=== PATIENT | female | born 1990 | race Two or more races ===

== ENCOUNTER 2020-04-20 17:22 | Emergency (ER) | payer OTHER ==
[~2020-04-20] VITALS: Ht 165.1 cm; Wt 68.9 kg
== END 2020-04-20 21:25 | disposition home or self-care (01) ==
LOC: ER 17:22
DX: N75.1 Abscess of Bartholin's gland (principal)

== ENCOUNTER 2023-03-24 12:43 | Emergency (ER) | payer OTHER ==
[~2023-03-24] VITALS: Ht 165.1 cm; Wt 81.6 kg
[2023-03-24] MEDS ORDERED: BACTRIM DS TAB1 EACH PO (14:46)
== END 2023-03-24 15:11 | disposition home or self-care (01) ==
LOC: ER 12:43
DX: N76.4 Abscess of vulva (principal)

== ENCOUNTER 2025-04-18 10:10 | Inpatient (IN) | payer OTHER ==
[~2025-04-18] VITALS: Ht 165.1 cm; Wt 77.1 kg
[~2025-04-18 10:10] MED LIST: BACTRIM DS TAB1 EACH PO
[2025-04-18] MEDS ORDERED: KETOROLAC TROMETHAMINE 30 MG VIAL ONE (10:41)
[2025-04-18] MEDS ORDERED: CEFTRIAXONE SODIUM 2,000 MG VIAL ONE (10:42)
[2025-04-18] MEDS ORDERED: 0.9 % SODIUM CHLORIDE 1,000 ML IV SCH (10:45)
[2025-04-18] MEDS ORDERED: CEFTRIAXONE SODIUM 2,000 MG VIAL IV ONE (10:45)
[2025-04-18] MEDS ORDERED: KETOROLAC TROMETHAMINE 30 MG VIAL IV ONE (10:45)
[2025-04-18 11:23] LABS: BASO % 0.5 % (0.1-1.2); EOS # 0.15 (0.04-0.54); EOS % 1.2 % (0.7-7.0); LYMPH # 2.06 (1.18-3.74); LYMPH % 16.3 % (19.3-53.1); MEAN PLATELET VOLUME 9.20 fl (9.4-12.4); MONO # 0.80 (0.24-0.82); MONO % 6.3 % (4.7-12.5); NEUT # 9.54 (1.56-6.13); NEUT % 75.3 % (34.0-71.1); RED CELL DISTRIBUTION WIDTH 13.0 % (11.6-14.4)
[2025-04-18 11:53] LABS: ALT/SGPT 17.0 U/L (12-78); AST/SGOT 10.0 U/L (15-37); BILIRUBIN TOTAL 0.28 mg/dL (0.3-1.2); BUN CREA RATIO 17.0 (7.0-25.0); CREATININE SERUM 0.71 mg/dL (0.55-1.02); GFR 93.68; GLOBULINA 4.5 G/DL (2.4-3.5); GLUCOSE FASTING 92.0 mg/dL (65-100); OSMOLALITY SERUM 279.0 MOSM/KG (275-295)
[2025-04-18 11:57] LABS: INR 1.05
[2025-04-18] MEDS ORDERED: PIPERACILLIN/TAZOBACTAM SODIUM 3.375 GM in 0.9 % SODIUM CHLORIDE 100 ML IV SCH (14:08)
[2025-04-18] MEDS ORDERED: FAMOTIDINE/PF 20 MG in 0.9 % SODIUM CHLORIDE 8 ML IV PUSH SCH (14:09)
[2025-04-18] MEDS ORDERED: OxyCODONE HCL 5 MG TABLET (ROXICODONE) PO PRN (14:15)
[2025-04-18] MEDS ORDERED: FAMOTIDINE/PF 20 MG/2 ML VIAL ONE ×2 (15:06→20:36)
[2025-04-18] MEDS ORDERED: PIPERACILLIN/TAZOBACTAM SODIUM 3.375 GM VIAL IV ONE (15:06)
[2025-04-18 15:33] VITALS: BP 102/64; O2SAT 100
[2025-04-18 16:40] VITALS: BP 116/75
[2025-04-19 01:48] VITALS: BP 95/61
[2025-04-19 08:31] VITALS: BP 127/89
[2025-04-19] MEDS ORDERED: LACTOBACILLUS ACIDOPHILUS 1 CAP CAP PO SCH ×2 (09:00)
[2025-04-19] MEDS ORDERED: CHLORHEXIDINE GLUCONATE 120 ML BOTTLE TOP SCH (09:00)
[2025-04-19] MEDS ORDERED: MUPIROCIN 22 GM OINT..GM TUBE NASAL SCH (09:00)
[2025-04-19] MEDS ORDERED: VANCOMYCIN HCL 1,000 MG VIAL IV SCH (09:00)
[2025-04-19 10:48] LABS: BUN CREA RATIO 15.0 (7.0-25.0); CREATININE SERUM 0.66 mg/dL (0.55-1.02); GFR 101.91; GLUCOSE FASTING 75.0 mg/dL (65-100); OSMOLALITY SERUM 279.0 MOSM/KG (275-295)
[2025-04-19] MEDS ORDERED: BENZOCAINE/MENTHOL 90 ML BOTTLE TOP SCH (12:00)
[2025-04-19] MEDS ORDERED: ONDANSETRON HCL 2 MG/ML VIAL IV SCH (14:30)
[2025-04-19 16:00] VITALS: BP 107/68
[2025-04-20] VITALS: BP 90/60
[2025-04-20 08:14] LABS: BUN CREA RATIO 13.0 (7.0-25.0); CREATININE SERUM 0.63 mg/dL (0.55-1.02); GFR 107.54; GLUCOSE FASTING 75.0 mg/dL (65-100); OSMOLALITY SERUM 278.0 MOSM/KG (275-295)
[2025-04-20] MEDS ORDERED: FAMOTIDINE/PF 20 MG/2 ML VIAL ONE (08:27)
[2025-04-20 08:45] VITALS: BP 94/55
[2025-04-20 16:17] VITALS: BP 99/63
[2025-04-21] VITALS: BP 104/67
[2025-04-21] MEDS ORDERED: FAMOTIDINE/PF 20 MG/2 ML VIAL ONE (07:43)
[2025-04-21 08:00] VITALS: BP 102/66
[2025-04-21 08:09] LABS: BUN CREA RATIO 10.0 (7.0-25.0); CREATININE SERUM 0.68 mg/dL (0.55-1.02); GFR 98.46; GLUCOSE FASTING 82.0 mg/dL (65-100); OSMOLALITY SERUM 278.0 MOSM/KG (275-295)
[2025-04-21 16:34] VITALS: BP 110/69
[2025-04-21] MEDS ORDERED: LINEZOLID IN DEXTROSE 5% 600 MG/300 ML PIGGYBAG IV SCH (21:00)
[2025-04-21] MEDS ORDERED: PIPERACILLIN/TAZOBACTAM SODIUM 3.375 GM VIAL IV ONE (23:03)
[2025-04-21 23:52] VITALS: BP 112/70
[2025-04-22 08:00] VITALS: BP 118/64
[2025-04-22 09:16] LABS: BASO % 0.3 % (0.1-1.2); EOS # 0.29 (0.04-0.54); EOS % 1.8 % (0.7-7.0); LYMPH # 2.70 (1.18-3.74); LYMPH % 16.8 % (19.3-53.1); MEAN PLATELET VOLUME 9.60 fl (9.4-12.4); MONO # 0.86 (0.24-0.82); MONO % 5.4 % (4.7-12.5); NEUT # 12.09 (1.56-6.13); NEUT % 75.2 % (34.0-71.1); RED CELL DISTRIBUTION WIDTH 13.2 % (11.6-14.4)
[2025-04-22 15:40] VITALS: BP 103/68
[2025-04-23 00:10] VITALS: BP 99/63
[2025-04-23 08:23] VITALS: BP 127/78; O2SAT 99
[2025-04-23] MEDS ORDERED: MORPHINE SULFATE 4 MG/ML VIAL IV ONE ×2 (16:10→16:40)
[2025-04-23] MEDS ORDERED: ONDANSETRON HCL 2 MG/ML VIAL IV ONE (16:40)
[2025-04-23] MEDS ORDERED: OxyCODONE HCL 5 MG TABLET (ROXICODONE) PO SCH (17:00)
[2025-04-23 18:12] VITALS: BP 107/71
[2025-04-23 21:49] LABS: BASO % 0.2 % (0.1-1.2); EOS # 0.03 (0.04-0.54); EOS % 0.2 % (0.7-7.0); LYMPH # 1.46 (1.18-3.74); LYMPH % 11.3 % (19.3-53.1); MEAN PLATELET VOLUME 9.10 fl (9.4-12.4); MONO # 0.75 (0.24-0.82); MONO % 5.8 % (4.7-12.5); NEUT # 10.62 (1.56-6.13); NEUT % 82.1 % (34.0-71.1); RED CELL DISTRIBUTION WIDTH 13.0 % (11.6-14.4)
[2025-04-24 00:53] VITALS: BP 99/65
[2025-04-24] MEDS ORDERED: SIMETHICONE 125 MG CAPSULE PO SCH (09:00)
[2025-04-24 09:02] VITALS: BP 119/83; O2SAT 99
[2025-04-24] MEDS ORDERED: FLUCONAZOLE IN NACL,ISO-OSM 200 MG/100 ML PIGGYBAG IV STA (11:17)
[2025-04-24 12:46] VITALS: BP 116/77; O2SAT 98
[2025-04-24 16:13] VITALS: BP 103/67
[2025-04-24] MEDS ORDERED: LINEZOLID 600 MG TABLET PO SCH (21:00)
[2025-04-25] VITALS: BP 90/54
[2025-04-25 09:05] VITALS: BP 116/77; O2SAT 98
[2025-04-25] MEDS ORDERED: FLUCONAZOLE IN NACL,ISO-OSM 200 MG/100 ML PIGGYBAG IV SCH (12:00)
[2025-04-25 12:49] VITALS: BP 104/70
[2025-04-25] MEDS ORDERED: BISACODYL 5 MG TABLET.EC PO NR (17:00)
[2025-04-25 17:13] VITALS: BP 109/66
[2025-04-25 21:01] VITALS: BP 122/76
[2025-04-26] VITALS: BP 98/61
[2025-04-26 08:00] VITALS: BP 109/73
== END 2025-04-26 09:39 | disposition home or self-care (01) | DRG 747 ==
LOC: ER 10:10 → OB/GYN 14:44
PROVIDERS: General Practice; ADMIT Obstetrics & Gynecology; ATTEND Obstetrics & Gynecology
PROC: BW21YZZ Computerized Tomography (CT Scan) of Abdomen and Pelvis using Other Contrast (ICD-10-PCS; 2025-04-18)
PROC: 0U9M0ZZ Drainage of Vulva, Open Approach (ICD-10-PCS; principal; 2025-04-19)
DX: N76.4 Abscess of vulva (principal)